=== PATIENT | male | born 1990 | race Two or more races ===

== ENCOUNTER 2024-05-14 02:15 | Emergency (ER) | payer MEDICAID, SELFPAY ==
[2024-05-14 02:16] VITALS: BMI 26.5
[2024-05-14 02:45] VITALS: BP 136/89; PULSE 93; RESP 20; TEMP 37; O2SAT 96
--- NOTE | 2024-05-14 02:51 | XR_ITS ---
Examination: Wrist, right 3 views Technique: Wrist AP, oblique, lateral 3 views Date and time of exam: May 14, 2024 0257 hrs. 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
--- NOTE | 2024-05-14 02:52 | EDNOTE_ITS ---
Upper Extremity Injury RME/HPI General Chief Complaint: Extremity Injury, Upper Stated Complaint: R ARM PAIN Time Seen by Provider: 05/14/24 02:50 Source: patient Arrival date/time: 05/14/24 02:15 33-year-old male presents emergency department complaining of right wrist pain after fracturing his wrist 1 month ago. Mode of arrival: ambulatory Limitations: no limitations Related Data Home Medications ?Medication ?Instructions ?Recorded ?Confirmed bacitracin 500 unit/gram topical See Rx Instructions .Route .COMPLEX 01/23/24 01/23/24 ointment cephalexin 500 mg capsule 500 mg PO QID 01/23/24 01/23/24 ibuprofen 600 mg tablet 600 mg PO BID PRN Pain 01/23/24 01/23/24 sulfamethoxazole 800 1 tab PO BID 01/23/24 01/23/24 mg-trimethoprim 160 mg tablet Previous Rx's ?Medication ?Instructions ?Recorded clindamycin HCl 300 mg capsule 300 mg PO TID #21 caps 01/23/24 polyethylene glycol 3350 17 4 g PO QDAY #238 grams 02/09/24 gram/dose oral powder (Miralax) ibuprofen 600 mg tablet 600 mg PO Q8H PRN pain #20 tabs 05/14/24 Allergies Allergy/AdvReac Type Severity Reaction Status Date / Time No Known Allergies Allergy Verified 05/14/24 02:18 Review of Systems Review of Systems Systems Reviewed: All systems reviewed, normal except as documented Constitutional Constitutional: Reports system reviewed and no additional complaints, except as documented, Denies body ache(s), Denies chills and Denies fever(s) Eyes Eyes: Reports system reviewed and no additional complaints, except as documented and Denies change in vision ENT Ears, Nose, Mouth, and Throat: Reports system reviewed and no additional complaints, except as documented, Denies disequilibrium, Denies dizziness, Denies sore throat and Denies vertigo Cardiovascular Cardiovascular: Reports system reviewed and no additional complaints, except as documented, Denies chest pain and Denies dyspnea Respiratory Respiratory: Reports system reviewed and no additional complaints, except as documented, Denies chest congestion, Denies cough and Denies dyspnea Gastrointestinal Gastrointestinal: Reports system reviewed and no additional complaints, except as documented, Denies abdominal pain, Denies nausea and Denies vomiting Musculoskeletal Musculoskeletal: Reports system reviewed and no additional complaints, except as documented, Denies abnormal gait and Reports arthralgias Integumentary/Breasts Skin/Breast: Reports system reviewed and no additional complaints, except as documented, Denies erythema, Denies rash and Denies wounds Neurologic Neurologic: Reports system reviewed and no additional complaints, except as documented, Denies abnormal gait, Denies disequilibrium, Denies dizziness and Denies vertigo Past Medical History Past Medical History CARDIAC: Negative Congestive Heart Failure RESPIRATORY: Negative Chronic Obstructive Pulmonary Disease (COPD) GENITOURINARY: Negative Renal Disease ENDOCRINE: Negative Diabetes Mellitus Type 1 or Diabetes Mellitus Type 2 Social History SMOKING STATUS: Current some day smoker ED Exam General Limitations: Present no limitations General appearance: Present alert and in no apparent distress Head Head exam: Present atraumatic Eye Eye exam: Present normal appearance, PERRL and EOMI ENT ENT exam: Present normal exam, normal oropharynx and mucous membranes moist Neck Neck exam: Present normal inspection, full ROM and trachea midline Chest Chest inspection: Present normal inspection and symmetric chest wall rise Respiratory Respiratory exam: Present normal lung sounds bilaterally Cardiovascular Cardiovascular exam: Present regular rate, normal rhythm and normal heart sounds Abdominal Exam Abdominal exam: Present soft and normal bowel sounds Extremities Exam Extremities exam: Present normal inspection and full ROM Expanded Upper Extremity Exam Forearm/Wrist exam: Present tenderness and swelling Back Exam Back exam: Present normal inspection and full ROM Neurological Exam Neurological exam: Present alert, oriented X3 and CN II-XII intact Psychiatric Psychiatric exam: Present normal affect and normal mood Skin Skin exam: Present warm, dry, intact and normal color Course Quality Measures none Orders Category Date Time Status Splint / Immobilizer STAT Care 05/14/24 05:[address] wrist RT wo con Stat Exams 05/14/24 04:33 Completed XR wrist comp RT min 3V Stat Exams 05/14/24 02:51 Completed Vital Signs Vital signs: Vital Signs Temperature 98.6 F 05/14/24 02:45 Pulse Rate 93 05/14/24 02:45 Respiratory Rate 20 05/14/24 02:45 Blood Pressure 136/89 H 05/14/24 02:45 Pulse Oximetry (%) 96 05/14/24 02:45 Oxygen Delivery Method Room Air 05/14/24 02:45 96% room air within normal limits Extremity Injury MDM Narrative MDM Narrative:: 33-year-old male presents emergency department complaining of right wrist pain after fracturing his wrist 1 month ago. Findings: Distal radius distal ulna intact Fracture of the proximal third of the navicular which appears old, with avascular necrosis of the proximal fracture fragment Mild to moderate narrowing radiocarpal joint Impression: Old appearing fracture proximal third of the navicular with nonunion MRI wrist without contrast follow-up would confirm avascular necrosis of the proximal fracture fragment of the navicular Dr Laws was consulted but patient eloped before final disposition. Patient data External records reviewed:: [facility] previous records Clinical information provided by:: patient Social determinants that could affect healthcare access:: none Patient has the following chronic illnesses:: See chart How is presenting disease/condition affected by chronic disease/condition?: uneffected by Evaluation data The following diagnostics were reviewed and interpreted by me:: radiology exam(s) Lab and/or radiology exams considered but not ordered:: Ordered Interpretation Summary: Interpreted by me Medications / Prescriptions Medications or Prescriptions considered but not ordered:: N/A Medication administrations:: N/A Consultations Consultation(s) initiated? (list below): Yes Consultation #1 (Physician, Specialty, Details): Dr. Alvarez Diagnosis Upper Extremity Injury Differential Diagnosis: fracture of wrist, Colles' fracture and fracture of hand Most likely diagnosis given after review of the tests above:: Eloped before final disposition Admission Indicated Admission indicated?: not indicated Admission Request Was there a request for admission?: No Disposition Plan Disposition Plan: other (specify) (Eloped) Discharge Plan Plan Patient Disposition: Elopement Prescriptions/Referrals Prescriptions/Med Rec: New ibuprofen 600 mg tablet 600 mg PO Q8H PRN (Reason: pain) Qty: 20 0RF No Action polyethylene glycol 3350 [Miralax] 17 gram/dose powder 4 g PO QDAY Qty: 238 0RF bacitracin 500 unit/gram ointment See Rx Instructions .ROUTE .COMPLEX Patient Comments: APPLY TOPICALLY TO AFFECTED AREAS once daily Rx Instructions: apply to affected area sulfamethoxazole-trimethoprim 800-160 mg tablet 1 tab PO BID Patient Comments: take 1 tablet by mouth twice a day for 10 days cephalexin 500 mg capsule 500 mg PO QID Patient Comments: take 1 capsule by mouth every 6 hours for 10 days ibuprofen 600 mg tablet 600 mg PO BID PRN (Reason: Pain) Patient Comments: take 1 tablet by mouth with food or milk twice a day if needed clindamycin HCl 300 mg capsule 300 mg PO TID Qty: 21 0RF Referrals: Jorge Contreras MD [Primary Care Provider] - In 1 week Km Laws MD [Physician] - 05/16/24 10:00 am Problem List Clinical Impression: Eloped from emergency department Patient/Caregiver Discharge Instructions Education Materials: How Bones Heal, ED Fracture, Wrist, General Print Language: Japanese Stand Alone Forms: Sonia Award Info., Patient Portal Info Letter PA/DINKEY ENGINE MECHANIC Supervising Physician PA/DINKEY ENGINE MECHANIC Supervising Physician: Dr. Marcus
[2024-05-14 04:31] VITALS: BP 136/90; PULSE 86; RESP 18; TEMP 37.1; O2SAT 99
--- NOTE | 2024-05-14 04:33 | XR_ITS ---
Examination: CT right wrist, without contrast. 2-D sagittal reconstructions. 2-D coronal reconstructions. 3-D reconstructions. Date and time of exam:May 14, 2024 0441 hrs. Indications: Lifting injury to the wrist today, with wrist pain CTDI: vol (mGy):3.91 DLP: (mGycm):104 Technique: Multiple 1.25 mm axial sections of the intravenous contrast have been obtained. 2-D sagittal and coronal reconstructions have been obtained. 3-D reconstructions have been obtained. Low dose protocols were performed. One or more of the following dose reduction techniques were used; automated exposure control, adjustment of the mA and/or KV according to patient size, use of iterative reconstruction technique. Findings: Distal radius distal ulna intact Fracture of the proximal third of the navicular which appears old, with avascular necrosis of the proximal fracture fragment Mild to moderate narrowing radiocarpal joint Impression: Old appearing fracture proximal third of the navicular with nonunion MRI wrist without contrast follow-up would confirm avascular necrosis of the proximal fracture fragment of the navicular
--- NOTE | 2024-05-14 05:26 | PRELIM_ITS ---
CT right wrist without intravenous contrast (axial sections with sagittal and coronal reformats) Dece er 2023 at 0441 hours Clinical History: Rule out fracture. Comparison: No prior study is availa ble for comparison. Findings:Acute displaced fracture of the scaphoid.No dislocation.Impression:Acute scaphoid fracture. Orthopedic consult is recommended. Report Electronically Signed By: Bethel rowland 05/14/2024 5:24:14 AM [EST]
== END 2024-05-14 06:45 | disposition left against medical advice (07) ==
PROVIDERS: Emergency Provider Emergency Medicine; PCP Family Medicine
DX: M25.531 Pain in right wrist (principal); Z53.29 Procedure and treatment not carried out because of patient's decision for other reasons
CPT/HCPCS: 73110; 73200; 99281

== ENCOUNTER 2024-06-20 12:59 | Emergency (ER) | payer MEDICAID, SELFPAY ==
[2024-06-20 13:52] VITALS: BP 153/81; PULSE 92; RESP 18; TEMP 36.5; O2SAT 97; BMI 29.6
--- NOTE | 2024-06-20 14:09 | XR_ITS ---
Examination: Hand, right 3 views Technique: Hand AP, oblique, lateral 3 views Date and time of exam: June 20, 2024 1415 hours INDICATIONS: Patient fell out of a tree 3 months ago with injury to the wrist and hand, wrist pain FINDINGS: Old ununited fracture proximal navicular, sclerosis of the proximal navicular fracture fragment Old deformity at the radial styloid Old fracture deformity fifth metacarpal No acute fracture Moderate narrowing radiocarpal joint IMPRESSION: Old ununited fracture navicular with avascular necrosis proximal navicular fracture fragment
--- NOTE | 2024-06-20 14:13 | EDNOTE_ITS ---
<Statement entered by Aicha Matos MD - 06/29/24 18:12> As co-signing physician, I was present and available for consult prn. I concur with the plan and care as documented by the midlevel provider. Upper Extremity Injury RME/HPI General Chief Complaint: Hand/Wrist Problems Stated Complaint: INJURY TO RIGHT WRIST 3 MONTHS AGO Time Seen by Provider: 06/20/24 13:45 Source: patient Arrival date/time: 06/20/24 12:59 This is a 33-year-old male who presented to the emergency department with complaints of right wrist pain ongoing for 3 months. Patient reports he was in a accident where he fell off a tree while working and landed on his wrist. States he been in the emergency department 2 times for imaging and workup however he eloped without treatment. States he has been using his arm despite knowing a fracture without splinting or follow-up. He returns to the emergency department for imaging and possible referral to orthopedics. Mode of arrival: ambulatory Related Data Home Medications ?Medication ?Instructions ?Recorded ?Confirmed bacitracin 500 unit/gram topical See Rx Instructions .Route .COMPLEX 01/23/24 01/23/24 ointment cephalexin 500 mg capsule 500 mg PO QID 01/23/24 01/23/24 ibuprofen 600 mg tablet 600 mg PO BID PRN Pain 01/23/24 01/23/24 sulfamethoxazole 800 1 tab PO BID 01/23/24 01/23/24 mg-trimethoprim 160 mg tablet Previous Rx's ?Medication ?Instructions ?Recorded clindamycin HCl 300 mg capsule 300 mg PO TID #21 caps 01/23/24 polyethylene glycol 3350 17 4 g PO QDAY #238 grams 02/09/24 gram/dose oral powder (Miralax) ibuprofen 600 mg tablet 600 mg PO Q8H PRN pain #20 tabs 05/14/24 Allergies Allergy/AdvReac Type Severity Reaction Status Date / Time No Known Allergies Allergy Verified 06/20/24 13:03 Review of Systems Review of Systems Systems Reviewed: All systems reviewed, normal except as documented Narrative Review of Systems: Gen: No fever, no chills, no weight loss EYES: No discharge, no visual changes, no pain HEENT: No ear pain, no congestion, no sore throat PULM: No shortness of breath, no cough, no congestion CV: No chest pain, no dyspnea on exertion, no palpitations GI: No nausea, no vomiting, no diarrhea, no pain, no constipation : No frequency, no urgency,? no dysuria Musc/skel: Right hand pain, no back pain Skin: No rash? Psyc: No hallucinations, no depression Heme/Lymph: No easy bleeding or bruising tendencies Neuro: No weakness, no headache ED Exam Narrative Physical exam: General: Sittiing in Exam table in no acute distress, answering questions appropriately HENT: normocephalic, atraumatic, EOMI, PERRLA, moist mucous membranes Chest: chest wall is nontender Cardiac: regular rate and rhythm, normal S1 and S2, no murmurs, rubs, or gallops, capillary refill ?2 seconds Pulmonary: clear to auscultation bilaterally, no wheezing, crackles, or rhonchi Abdominal: active bowel sounds, soft, nontender, nondistended Neuro: A&OX3, CN II-XII intact, sensation grossly intact bilaterally in UE and LE. Skin: no rashes, no ecchymosis Ext: no lower extremity edema Course Quality Measures none Orders Category Date Time Status XR hand comp RT min 3V Stat Exams 06/20/24 14:09 Completed Vital Signs Vital signs: Vital Signs Temperature 97.7 F 06/20/24 13:52 Pulse Rate 92 06/20/24 13:52 Respiratory Rate 18 06/20/24 13:52 Blood Pressure 153/81 H 06/20/24 13:52 Pulse Oximetry (%) 97 06/20/24 13:52 Oxygen Delivery Method Room Air 06/20/24 13:52 Extremity Injury MDM Narrative MDM Narrative:: 33-year-old male with a history of navicular fracture for 3 months poor com pliance and follow-up. Returns here to the emergency department for orthopedic referral. I did educate the patient that orthopedic referrals are normally done by his PCP. An x-ray was repeated today demonstrating old fracture navicular with possible vascular necrosis. I did place a call out to Dr. Laws who is on-call orthopedic I discussed the case in regards the patient's history, previous imaging and imaging today. Advised that the patient can follow-up with him in his clinic on Monday. I did the advised the patient he might need to see his PCP for an actual referral. Patient's hand was splinted in a temporary splint until he is evaluated by orthopedic again. Strict ER precautions given to patient. Patient data External records reviewed:: [facility] previous records Clinical information provided by:: patient Social determinants that could affect healthcare access:: none Patient has the following chronic illnesses:: none How is presenting disease/condition affected by chronic disease/condition?: no chronic disease Evaluation data The following diagnostics were reviewed and interpreted by me:: radiology exam(s) Lab and/or radiology exams considered but not ordered:: none Interpretation Summary: Examination: Hand, right 3 views Technique: Hand AP, oblique, lateral 3 views Date and time of exam: June 20, 2024 1415 hours INDICATIONS: Patient fell out of a tree 3 months ago with injury to the wrist and hand, wrist pain FINDINGS: Old ununited fracture proximal navicular, sclerosis of the proximal navicular fracture fragment Old deformity at the radial styloid Old fracture deformity fifth metacarpal No acute fracture Moderate narrowing radiocarpal joint IMPRESSION: Old ununited fracture navicular with avascular necrosis proximal navicular fracture fragment Medications / Prescriptions Medications or Prescriptions considered but not ordered:: none Medication administrations:: none Consultations Consultation(s) initiated? (list below): Yes Consultation #1 (Physician, Specialty, Details): - At [address] Laws orthopedic. I discussed the case in regards the patient's history, previous imaging and imaging today. Advised that the patient can follow-up with him in his clinic on Monday. Patient's hand was splinted in a temporary splint until he is evaluated by orthopedic again. Diagnosis Upper Extremity Injury Differential Diagnosis: sprain and strain of wrist, fracture of wrist and fracture of hand Most likely diagnosis given after review of the tests above:: Fx navicular, wrist closed , avascular necrosis Admission Indicated Admission indicated?: not indicated Explain why admission is indicated or not indicated:: none Admission Request Was there a request for admission?: No Disposition Plan Disposition Plan: Discharge Discharge Attestation Discharge Attestation: The patient and all family members were given an opportunity to ask questions and understood the discharge instructions. Discharge instructions specifically effects, indications for sooner follow up or return to the emergency department, and the expected course of current diagnosis. Patient condition: Stable Discharge Plan Plan Patient Disposition: HOME (Self Care) Patient condition on transfer: Stable Prescriptions/Referrals Prescriptions/Med Rec: No Action polyethylene glycol 3350 [Miralax] 17 gram/dose powder 4 g PO QDAY Qty: 238 0RF bacitracin 500 unit/gram ointment See Rx Instructions .ROUTE .COMPLEX Patient Comments: APPLY TOPICALLY TO AFFECTED AREAS once daily Rx Instructions: apply to affected area sulfamethoxazole-trimethoprim 800-160 mg tablet 1 tab PO BID Patient Comments: take 1 tablet by mouth twice a day for 10 days cephalexin 500 mg capsule 500 mg PO QID Patient Comments: take 1 capsule by mouth every 6 hours for 10 days ibuprofen 600 mg tablet 600 mg PO BID PRN (Reason: Pain) Patient Comments: take 1 tablet by mouth with food or milk twice a day if needed clindamycin HCl 300 mg capsule 300 mg PO TID Qty: 21 0RF ibuprofen 600 mg tablet 600 mg PO Q8H PRN (Reason: pain) Qty: 20 0RF Referrals: Jorge Contreras MD [Primary Care Provider] - In 1 week Km Laws MD [Physician] - In 1 week Problem List Clinical Impression: Fx navicular, wrist-closed Patient/Caregiver Discharge Instructions Discharge Activity: activity as tolerated Education Materials: ED Fracture, Wrist, General Additional Instructions: - Dr. Laws orthopedic will gladly see you in his office his information is written on this paperwork. Please call his office to make an appointment. You still might need a appointment with your doctor for a referral from your PCP, due to insurance purposes. Your x-rays still shows a old fracture of your wrist. Can take [id number] Tylenol ibuprofen for pain. Return to the emergency department if there is any worsening symptoms or change in condition. Print Language: Maltese Stand Alone Forms: Sonia Award Info., Patient Portal Info Letter PA/MEDICAL DATA ENTRY CLERK Supervising Physician PA/MEDICAL DATA ENTRY CLERK Supervising Physician: Dr. Seth
== END 2024-06-20 16:05 | disposition home or self-care (01) ==
PROVIDERS: Emergency Provider Emergency Medicine; PCP Family Medicine
DX: S62.031A Displaced fracture of proximal third of navicular [scaphoid] bone of right wrist, initial encounter for closed fracture (principal); W14.XXXA Fall from tree, initial encounter
CPT/HCPCS: 29125; 73130; 99283

== ENCOUNTER 2025-05-04 02:10 | Emergency (ER) | payer MEDICAID, SELFPAY ==
[2025-05-04 02:12] VITALS: BMI 25.8
[2025-05-04 02:14] VITALS: BP 136/93; PULSE 123; RESP 18; TEMP 36.9; O2SAT 94
--- NOTE | 2025-05-04 02:22 | PD.EDMEDCL ---
ED Medical Clearance RME/HPI General Chief complaint: Medical Clearance Stated complaint: MEDICAL CLEARANCE Time Seen by Provider: 05/04/25 02:21 Arrival date/time: 05/04/25 02:10 RME / HPI RME / HPI Narrative: See [facility] for Dr. Lunsford's HPI Documentation. Related Information Home Medications ?Medication ?Instructions ?Recorded ?Confirmed bacitracin 500 unit/gram topical See Rx Instructions .Route .COMPLEX 01/23/24 01/23/24 ointment cephalexin 500 mg capsule 500 mg PO QID 01/23/24 01/23/24 ibuprofen 600 mg tablet 600 mg PO BID PRN Pain 01/23/24 01/23/24 sulfamethoxazole 800 1 tab PO BID 01/23/24 01/23/24 mg-trimethoprim 160 mg tablet Previous Rx's ?Medication ?Instructions ?Recorded clindamycin HCl 300 mg capsule 300 mg PO TID #21 caps 01/23/24 polyethylene glycol 3350 17 4 g PO QDAY #238 grams 02/09/24 gram/dose oral powder (Miralax) ibuprofen 600 mg tablet 600 mg PO Q8H PRN pain #20 tabs 05/14/24 Allergies Allergy/AdvReac Type Severity Reaction Status Date / Time No Known Allergies Allergy Verified 09/05/24 07:21 Review of Systems Review of Systems Systems Reviewed: All systems reviewed, normal except as documented ED Exam Narrative Physical exam: See [facility] for Dr. Lunsford's Physical Exam Documentation. Course Quality Measures none Vital Signs Vital signs: Vital Signs Temperature 98.5 F 05/04/25 02:14 Pulse Rate 123 H 05/04/25 02:14 Respiratory Rate 18 05/04/25 02:14 Blood Pressure 136/93 H 05/04/25 02:14 Pulse Oximetry (%) 94 L 05/04/25 02:14 Oxygen Delivery Method Room Air 05/04/25 02:14 Medical Clearance [facility] Narrative [facility] Narrative:: This section includes all my notes and documentations, including HPI, PE, and ED course. Dano Lunsford MD HPI: 34 y/o male BIB [employer] here for assisted medical clearance. Patient reported right wrist pain from fracture several years ago. No recent injury. Can move and feel the fingers normally. No other complaints. ROS: All negative except as documented in HPI. Physical Exam: General:? Alert and oriented.? No acute distress.? Eyes:? Conjunctivae and lids clear.? EOMI.? PERRL. ENT:? No signs of head trauma. Neck:? Supple.? No tenderness. Heart:? RRR. Lungs:? No respiratory distress.? Good air movement.? No rhonchi, wheezing, rales.? Chest:? No tenderness. Abdomen:? Soft and nontender.? Normal bowel sounds.? No distension.? No rebound or guarding.? Back:? No tenderness.? Skin:? Warm and dry.? Neuro:? Alert and oriented X 3.? Cranial Nerves II-XII grossly intact.? No peripheral motor deficits. Musculoskeletal:? All major joints and bones, including in the right wrist, are not tender with no limited ROM. At this point, diagnoses include: Medical Clearance for Incarceration Based on my best medical judgment, made decision to medically clear the patient and no further evaluation or treatment indicated at this time. Patient understands and agrees to the discharge instructions customized and printed, see below. Discharge Instructions from Dr. Lunsford printed for you: 1. As you requested, you are medically cleared for assisted without any diagnostic tests. 2. Exam of your right wrist shows no condition needing urgent intervention. 3. Seek immediate medical care with any concerns. You can ask for medical attention any time. Dano Lunsford MD Patient data External records reviewed:: [facility] previous records (Reviewed prior ED records from 06/20/24. Patient was seen for Fx navicular, wrist-closed.) Clinical information provided by:: patient and law enforcement Social determinants that could affect healthcare access:: none Patient has the following chronic illnesses:: None reported How is presenting disease/condition affected by chronic disease/condition?: no chronic disease Evaluation data The following diagnostics were reviewed and interpreted by me:: other (specify) (N/A) Lab and/or radiology exams considered but not ordered:: None Interpretation Summary: None Medications / Prescriptions Medications or Prescriptions considered but not ordered:: None Medication administrations:: None Consultations Consultation(s) initiated? (list below): No Diagnosis Medical Clearance Differential Diagnosis: other (No signs of right wrist injury) Most likely diagnosis given after review of the tests above:: Medical Clearance for Incarceration Admission Indicated Admission indicated?: not indicated Explain why admission is indicated or not indicated:: With no condition needing emergent intervention, there was no indication for admission. Admission Request Was there a request for admission?: No Disposition Plan Disposition Plan: Discharge (to Law Enforcement) Discharge Attestation Discharge Attestation: The patient and all family members were given an opportunity to ask questions and understood the discharge instructions. Discharge instructions specifically effects, indications for sooner follow up or return to the emergency department, and the expected course of current diagnosis. Patient condition: Stable Discharge Plan Plan Patient Disposition: Longterm/Court/Law Prescriptions/Referrals Prescriptions/Med Rec: No Action polyethylene glycol 3350 [Miralax] 17 gram/dose powder 4 g PO QDAY Qty: 238 0RF bacitracin 500 unit/gram ointment See Rx Instructions .ROUTE .COMPLEX Patient Comments: APPLY TOPICALLY TO AFFECTED AREAS once daily Rx Instructions: apply to affected area sulfamethoxazole-trimethoprim 800-160 mg tablet 1 tab PO BID Patient Comments: take 1 tablet by mouth twice a day for 10 days cephalexin 500 mg capsule 500 mg PO QID Patient Comments: take 1 capsule by mouth every 6 hours for 10 days ibuprofen 600 mg tablet 600 mg PO BID PRN (Reason: Pain) Patient Comments: take 1 tablet by mouth with food or milk twice a day if needed clindamycin HCl 300 mg capsule 300 mg PO TID Qty: 21 0RF ibuprofen 600 mg tablet 600 mg PO Q8H PRN (Reason: pain) Qty: 20 0RF Problem List Clinical Impression: Medical clearance for incarceration Patient/Caregiver Discharge Instructions Discharge Activity: activity as tolerated Additional Instructions: Discharge Instructions from Dr. Lunsford printed for you: 1. As you requested, you are medically cleared for assisted without any diagnostic tests. 2. Exam of your right wrist shows no condition needing urgent intervention. 3. Seek immediate medical care with any concerns. You can ask for medical attention any time. Print Language: Croatian
[2025-05-04 02:45] VITALS: TEMP 36.9
== END 2025-05-04 02:22 ==
PROVIDERS: Emergency Provider Emergency Medicine
DX: Z02.89 Encounter for other administrative examinations (principal); M25.531 Pain in right wrist
CPT/HCPCS: 99281